=== PATIENT | male | born 1965 | race Hispanic/Latino ===

== ENCOUNTER 2016-11-14 11:31 | Emergency (ER) | payer OTHER ==
[~2016-11-14] VITALS: Ht 180.3 cm; Wt 93.0 kg
[~2016-11-14 11:31] MED LIST: ALBUTEROL0.09 MG/A1 INH; BETAMETHASONE D1 CRE TOP; CATAPRES 0.1MG0.1 M1 PO; FLEXERIL10 MG PO; HYDROXYZINE PAM50 MG PO; IBU800 MG PO; IMODIUM2 MG PO; LIORESAL 10MG T10 MG PO; LOTRISONE CREAM15 GM TOP; MEDROL DOSEPAK1 PAC PO; MOBIC15 MG PO; MOMETASONE FUROA0.1%; PERCOCET 325 MG1 TA2 PO; PERCOCET 325 MG1 TAB PO; PROTONIX 40MG T40 MG PO; PROVENTIL0.09 MG/A1 PO; SEROQUEL 25MG25 MG PO; SEROQUEL XR50 MG PO; SEROQUEL50 MG PO; TRAMADOL50 MG PO; TYLENOL #31 TAB; TYLENOL #31 TAB PO; TYLENOL #4 3001 TAB PO
[2016-11-14 11:37] VITALS: BP 147/95
[2016-11-14] MEDS ORDERED: SEROQUEL25 M1 PO (12:11)
[2016-11-14] MEDS ORDERED: CLONIDINE HCL0.1 MG PO (12:11)
[2016-11-14] MEDS ORDERED: ZOFRAN4 M2 PO (12:11)
--- NOTE | 2016-11-14 12:12 | ED GENERAL ADULT ---
History of Present Illness General Chief Complaint: General Adult Stated Complaint: MED REFILL Source: patient Exam Limitations: no limitations Vital Signs & Intake/Output Vital Signs & Intake/Output Vital Signs Date Time Temp Pulse Resp B/P Pulse O2 O2 Flow FiO2 Ox Delivery Rate 11/14 1137 98.7 96 20 147/95 97 Room Air Allergies Coded Allergies: NO KNOWN ALLERGIES (05/20/15) Reconcile Medications Albuterol Sulfate (Albuterol Sulfate Hfa) 0.09 MG/Actuation CAROLE 2 PUFF INH PRN ASTHMA (Reported) 90 MCG PER PUFF Clonidine HCl 0.1 MG TABLET 1 TAB PO TID WITHDRAWAL FROM OPIATES CLOTRIMAZOLE/BETAMETHASONE DIP (Clotrimazole-Betamethasone Crm) 1 CRE CRE 1 KAREN TOP PRN SCALP (Reported) apply to affected area(s) Ibuprofen (Ibu) 800 MG TAB 1 TAB PO TID PAIN (Reported) Ondansetron HCl (Zofran) 4 MG TABLET 1 TAB PO Q6-8P PRN NAUSEA Pantoprazole Sodium (Protonix) 40 MG TAB 1 TAB PO DAILY GI (Reported) Quetiapine Fumarate (Seroquel) 25 MG TAB 1 TAB PO QPM SLEEP (Reported) Quetiapine Fumarate (Seroquel) 50 MG TAB 1 TAB PO QPM SLEEP Quetiapine Fumarate (Seroquel) 25 MG TABLET 1 TAB PO BID MOOD DISORDER Tylenol With Codeine (Tylenol With Codeine #4 Tablet) 1 TAB TAB 1 TAB PO 4 TIMES/DAY PRN PAIN Triage Note: PT REQUEST REFILL OF SEROQUEL AND TYLENOL #3 Triage Nurses Notes Reviewed? yes Onset: Gradual Duration: constant Severity: mild Severity Numbers: 3 HPI: Patient is a 51-year-old male who presents emergency room with medication refill request in which she states that he just arrived from [place] a week ago where he has been prescribed in the past Seroquel 25 mg twice a day and Tylenol with codeine for his chronic back pain and states he does not had appointment until next week for follow-up for medication refill. Patient denies any mechanism of injury or new etiology of his low back pain. Patient otherwise is without new complaints. Past History Travel History Traveled to [place] past 21 day No Medical History Any Pertinent Medical History? see below for history Neurological: NONE EENT: NONE Cardiovascular: NONE Respiratory: asthma Gastrointestinal: GERD, umbilical hernia Hepatic: NONE Renal: NONE Musculoskeletal: chronic back pain, disk herniation Psychiatric: bipolar disease, depression Endocrine: NONE Blood Disorders: NONE Cancer(s): NONE [employer]/Reproductive: NONE Surgical History Surgical History: NONE Psychosocial History What is your primary language Kinyarwanda Tobacco Use: Never used ETOH Use: occasional use Illicit Drug Use: denies illicit drug use Family History Hx Contributory? No Review of Systems Review of Systems Constitutional: Reports: no symptoms. EENTM: Reports: no symptoms. Respiratory: Reports: no symptoms. Cardiovascular: Reports: no symptoms. GI: Reports: no symptoms. Genitourinary: Reports: no symptoms. Musculoskeletal: Reports: see HPI, back pain. Skin: Reports: no symptoms. Neurological/Psychological: Reports: see HPI. Hematologic/Endocrine: Reports: no symptoms. Immunologic/Allergic: Reports: no symptoms. All Other Systems: Reviewed and Negative Physical Exam Physical Exam General Appearance: no apparent distress, alert Comments: Well-developed well-nourished person in no acute distress HEENT: Normal EENT exam, extraocular motion intact, no nystagmus. Pupils equally round and reactive to light and accommodation. Nose is atraumatic. External auditory canal and Tympanic membranes clear. Pharynx normal. No swelling or edema. Neck: Supple, no lymphadenopathy, normal range of motion without pain or tenderness Back: Normal inspection, generalized point tenderness noted Cardiovascular: Regular rate and rhythms no murmurs rubs or gallops, normal JVP Respiratory: Chest nontender. No respiratory distress.breath sounds clear to auscultation bilaterally Abdomen: Soft, nontender nondistended, no appreciable organomegaly. Normal bowel sounds. No ascites Extremity: No edema, no calf tenderness to palpation, normal and equal pulses. Neuro: Alert oriented x3, motor sensory normal, Skin: No appreciable rash on exposed skin, skin is warm and dry. Psych: Mood and affect is normal, memory and judgment is normal. Core Measures ACS in differential dx? No CVA/TIA Diagnosis: No Severe Sepsis Present: No Septic Shock Present: No Progress Differential Diagnoses I considered the following diagnoses in my evaluation of the patient: [Chronic back pain, mood disorder, medication refill, transverse myelitis, fracture, lumbar strain, spinal abscess] Plan of Care: Patient's is requesting medication refill only. It is noted to CT [employer] that patient just received a 10 day prescription of tramadol 3 days ago and was patient was requesting Tylenol with Codeine where I do not feel comfortable prescribed in patient more narcotics. When discussing with this to patient he states that "how can I get off this medication". Patient was requesting to try to discontinue this medication or narcotics in which she was prescribed Zofran and clonidine for possible withdrawal symptoms. Patient was strongly advised to follow-up with his primary care doctor. Upon discharge patient looks well no apparent distress and will comply with discharge shock since and had no questions. Initial ED EKG: none Departure Departure Disposition: HOME OR SELF CARE Condition: Stable Clinical Impression Primary Impression: Back pain Secondary Impressions: Medication refill Referrals: PATIENT HAS NO PRIMARY CARE DR (PCP/Family) Additional Instructions: As discussed today please follow-up and call your primary care doctor to make an appointment for further evaluation treatment and medication prescriptions. Begin the prescription of Seroquel as directed, and if you decide to discontinue the use of narcotics again the prescription of Zofran for future nausea if needed and the prescription of clonidine for withdrawal symptoms. Prescriptions are waiting at [facility]. If symptoms worsen return to emergency room Departure Forms: Customer Survey General Discharge Information Prescriptions: Current Visit Scripts Quetiapine Fumarate (Seroquel) 1 TAB PO BID #14 TAB Clonidine HCl 1 TAB PO TID #9 TAB Ondansetron HCl (Zofran) 1 TAB PO Q6-8P PRN NAUSEA #15 TAB Critical Care Note Critical Care Note Critical Care Time: non-applicable
== END 2016-11-14 12:19 ==
LOC: ERH 11:31
DX: M54.9 Dorsalgia, unspecified (principal); Z76.0 Encounter for issue of repeat prescription
CPT/HCPCS: 99281